=== PATIENT | female | born 1945 | race Caucasian/White ===

== ENCOUNTER 2018-12-16 11:26 | Emergency (ER) | payer OTHER ==
[~2018-12-16] VITALS: Ht 152.4 cm; Wt 59.0 kg
[~2018-12-16 11:26] MED LIST: CEFDINIR300 MG PO; GUAIFENESIN AC C5 ML PO
== END 2018-12-16 16:37 | disposition home or self-care (01) ==
LOC: ER 11:26
DX: S93.691A Other sprain of right foot, initial encounter (principal); X50.0XXA Overexertion from strenuous movement or load, initial encounter; Y93.89 Activity, other specified; Y92.89 Other specified places as the place of occurrence of the external cause; Y99.8 Other external cause status